=== PATIENT | female | born 1975 | race Two or more races ===

== ENCOUNTER 2022-04-17 00:40 | Emergency (ER) | payer BC ==
[2022-04-17] MEDS ORDERED: Sodium Chloride 0.9% 1,000 ML IV ONE ×2 (00:50→01:35)
[2022-04-17] MEDS ORDERED: Ondansetron 4 MG/2 ML SDV IVPUSH ONE (01:08)
[2022-04-17 01:35] LABS: ANION GAP 9.9 meq/L (7-15); CHLORIDE,CL 102 mmol/L (98-107); SODIUM,NA 138 mmol/L (136-145)
[2022-04-17 02:16] LABS: CORONAVIRUS COVID-19 NAA NEGATIVE (NEGATIVE); RESPIRATORY SYNCYTIAL VIR NAA NEGATIVE (NEGATIVE)
== END 2022-04-17 05:04 | disposition home or self-care (01) ==
LOC: LL.ED 00:40
DX: K52.9 Noninfective gastroenteritis and colitis, unspecified (principal); Z20.822 Contact with and (suspected) exposure to COVID-19
CPT/HCPCS: 0241U; 36415; 80053; 83605; 85025; 96361; 96374; 99283; 99284-25; J2405; J7030